=== PATIENT | female | born 1980 | race Caucasian/White ===

== ENCOUNTER 2019-05-11 08:39 | Day surgery (SDC) | payer BC ==
[~2019-05-11 08:39] MED LIST: Lactated Ringers 1,000 ML IV SCH
[2019-05-11] MEDS ORDERED: Midazolam 1 MG/ML 2 ML SDV ONE (08:53)
[2019-05-11] MEDS ORDERED: fentaNYL 100 MCG/2 ML SDV ONE (08:53)
[2019-05-11] MEDS ORDERED: Ondansetron 4 MG/2 ML SDV ONE (08:53)
[2019-05-11] MEDS ORDERED: Propofol 200 MG/20 ML SDV ONE (08:53)
--- NOTE | 2019-05-11 09:24 | PCM.PREANE ---
Preanesthetic Assessment - Anesthesia/Transfusion/Family Hx Anesthesia History: Prior Anesthesia Without Reaction Family History of Anesthesia Reaction: No Transfusion History: Prior Transfusion Without Reaction Intubation History: Unknown - Review of Systems General: No Symptoms Pulmonary: No Symptoms Cardiovascular: No Symptoms Gastrointestinal: No Symptoms Neurological: No Symptoms Other: Reports: None - Physical Assessment Height: 5 ft 3.5 in Weight: 58.513 kg ASA Class: 2 Mental Status: Alert & Oriented x3 Airway Class: Mallampati = 1 Dentition: Reports: Normal Dentition Thyro-Mental Finger Breadths: 3 Mouth Opening Finger Breadths: 3 ROM/Head Extension: Full Lungs: Clear to Auscultation, Normal Respiratory Effort Cardiovascular: Regular Rate, Regular Rhythm - Allergies Allergies/Adverse Reactions: Allergies Allergy/AdvReac Type Severity Reaction Status Date / Time No Known Allergies Allergy Verified 05/10/19 16:56 - Blood Blood Available: No - Anesthesia Plan Pre-Op Medication Ordered: None - Acknowledgements Anesthesia Type Planned: General Anesthesia Pt an Appropriate Candidate for the Planned Anesthesia: Yes Alternatives and Risks of Anesthesia Discussed w Pt/Guardian: Yes Pt/Guardian Understands and Agrees with Anesthesia Plan: Yes PreAnesthesia Questionnaire HEENT History: Reports: Other (See Below) Other HEENT History: wears glasses/contacts Cardiovascular History: Reports: None Respiratory History: Reports: None Gastrointestinal History: Reports: GERD (mild, treated with tums) Genitourinary History: Reports: Other (See Below) Other Genitourinary History: 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: Reports: Musculoskeletal History: Reports: None Neurological History: Reports: None Psychiatric History: Reports: None Endocrine/Metabolic History: Reports: None Hematologic History: Reports: Blood Transfusion(s) Other Hematologic History: hx of blood transfusion for post bleed/ retained placenta Immunologic History: Reports: None Oncologic (Cancer) History: Reports: None Dermatologic History: Reports: None - Past Surgical History Head Surgeries/Procedures: Reports: None HEENT Surgical History: Reports: Oral Surgery Other HEENT Surgeries/Procedures: wisdom teeth extraction Cardiovascular Surgical History: Reports: None Respiratory Surgical History: Reports: None GI Surgical History: Reports: None Female Surgical History: Reports: Section, D&C Other Female Surgeries/Procedures: D&C x2, IVF x3 Endocrine Surgical History: Reports: None Neurological Surgical History: Reports: None Musculoskeletal Surgical History: Reports: None Oncologic Surgical History: Reports: None Dermatological Surgical History: Reports: None - SUBSTANCE USE Smoking Status *Q: Never Smoker - HOME MEDS Home Medications: Home Meds Aspirin [Lo-Dose Aspirin EC] 81 mg PO DAILY 05/10/19 [History] Calcium Carbonate [Tums] 1 tab.chew CHEW ASDIRECTED PRN 05/10/19 [History] - CURRENT (IN HOUSE) MEDS Current Meds: Current Medications Lactated Ringer's (Ringers, Lactated) 1,000 mls @ 125 mls/hr IV ASDIRECTED KATRIN Discontinued Medications Fentanyl (Sublimaze) Confirm Administered Dose 100 mcg .ROUTE .STK-MED ONE Stop: 05/11/19 08:54 Midazolam HCl (Versed 1 Mg/Ml) Confirm Administered Dose 2 mg .ROUTE .STK-MED ONE Stop: 05/11/19 08:54 Ondansetron HCl (Zofran) Confirm Administered Dose 4 mg .ROUTE .STK-MED ONE Stop: 05/11/19 08:54 Propofol (Diprivan 20 Ml) Confirm Administered Dose 200 mg .ROUTE .STK-MED ONE Stop: 05/11/19 08:54
--- NOTE | 2019-05-11 10:55 | PCM.OPNOTE ---
- General Post-Op/Procedure Note Date of Surgery/Procedure: 05/11/19 Operative Procedure(s): suction dilatation and curettage Findings: preop uterus 6-7 week size, slightly boggy, postop, firm 6 week size Pre Op Diagnosis: 6 week missed Post-Op Diagnosis: Same Anesthesia Technique: General LMA Primary Surgeon: Ingrid Calle Anesthesia Provider: Edmond Summers Pathology: products of conception Fluid Replacement, Intraop: 700 EBL in mLs: 75 Complications: None Known Condition: Good
--- NOTE | 2019-05-11 11:19 | PCM.POSTAN ---
POST ANESTHESIA ASSESSMENT - MENTAL STATUS Mental Status: Alert, Oriented - VITAL SIGNS Vital Signs: Last Vital Signs Temp 36.3 C 05/11/19 10:55 Pulse 74 05/11/19 11:10 Resp 14 05/11/19 11:10 BP 106/68 05/11/19 11:10 Pulse Ox 100 05/11/19 11:10 - RESPIRATORY Respiratory Status: Respiratory Rate WNL, Airway Patent, O2 Saturation Stable - CARDIOVASCULAR CV Status: Pulse Rate WNL, Blood Pressure Stable - GASTROINTESTINAL GI Status: No Symptoms - PAIN Pain Score: 0 - POST OP HYDRATION Hydration Status: Adequate & Stable - OBSERVATIONS Free Text/Narrative:: no anesthesia problems
--- NOTE | 2019-05-11 11:38 | PCM48HPAN ---
Post Anesthesia Note - EVALUATION WITHIN 48HRS OF ANESTHETIC Vital Signs in Normal Range: Yes Patient Participated in Evaluation: Yes Respiratory Function Stable: Yes Airway Patent: Yes Cardiovascular Function Stable: Yes Hydration Status Stable: Yes Pain Control Satisfactory: Yes Nausea and Vomiting Control Satisfactory: Yes Mental Status Recovered: Yes Vital Signs: Last Vital Signs Temp 36.3 C 05/11/19 10:55 Pulse 74 05/11/19 11:10 Resp 14 05/11/19 11:10 BP 106/68 05/11/19 11:10 Pulse Ox 100 05/11/19 11:10 - COMMENTS/OBSERVATIONS Free Text/Narrative:: No anesthesia problems
--- NOTE | 2019-05-12 09:21 | OR ---
SURGEON: Ingrid Calle M.D. DATE OF PROCEDURE: 05/11/2019 PREOPERATIVE DIAGNOSIS: Six-week missed . POSTOPERATIVE DIAGNOSIS: Six-week missed . PROCEDURE: Suction dilatation and curettage. PRIMARY SURGEON: Ingrid Calle MD. ANESTHESIA: LMA. ESTIMATED BLOOD LOSS: 75 mL. FLUIDS: 700 mL of crystalloid. FINDINGS: Preoperatively, the uterus was slightly boggy, 6- to 7-week size, cervix closed. Postoperatively, uterus was firm, 6-week size, with minimal bleeding. COMPLICATIONS: None known. DISPOSITION: Stable to recovery. BRIEF HISTORY: This is a 38-year-old female. She had two embryos transferred with Dr. Brothers in [place]. She had one embryo that at 6 weeks and 6 days showed a heart beat of 91. One week later, the embryo measured 6 weeks and 1 day without cardiac activity. Therefore, the diagnosis of embryonic demise was made. 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 She has been offered alternatives, including Cytotec or expected management. Previously, she had a retained placenta after a vaginal after , and she had some concern about retaining products and therefore desires to proceed with a suction D and C with risks discussed, including bleeding, infection, uterine perforation with injury to surrounding organs, as well as risk of thromboembolic event and risk of anesthesia. Understanding all these risks, she does desire to proceed. DESCRIPTION OF PROCEDURE: With the patient in dorsolithotomy position, under adequate general LMA analgesia, the perineum and vagina were prepped with Betadine and draped in the usual fashion for vaginal surgery. SCDs were in place. The bladder had been drained with a red Gordon catheter. Bimanual examination was performed. The uterus was noted as above. A time-out had been held and the speculum was placed in the vagina. The cervix was grasped with an Allis clamp. The cervix was easily dilated to a 10 mm Hegar dilator. A 9 mm straight suction curette was placed, and using the suction cannula with the pressure in the green zone with repetitive turning motion, the suction cannula was placed to the uterine fundus and removed until no further tissue. Minimal bleeding was obtained. Sharp curettage was then gently performed at the 12, 3, 6, and 9 o'clock positions with a good uterine cry felt on all surfaces. At this point, the uterus was already destin and was very firm. There was no bleeding. Bimanual examination revealed a 6-week firm uterus. The speculum and instruments were removed from the vagina. Final sponge, needle, and instrument count was reported as correct. There were no complications. The patient was transferred to recovery in good condition. WENDI ERWIN /[id number]
== END 2019-05-11 11:50 | disposition home or self-care (01) ==
LOC: MW.SDS 08:39
PROVIDERS: ATTEND Obstetrics & Gynecology
DX: O02.1 Missed abortion (principal); K21.9 Gastro-esophageal reflux disease without esophagitis
CPT/HCPCS: 59820; J0131; J2250; J2405; J2704; J3010; J7120; 01965; 88305